=== PATIENT | male | born 1970 | race Caucasian/White ===

== ENCOUNTER 2016-12-05 22:53 | Emergency (ER) | payer OTHER ==
[~2016-12-05] VITALS: Ht 180.3 cm; Wt 110.0 kg
[~2016-12-05 22:53] MED LIST: ENAL10TA88 PO; OMEP40CA PO
[2016-12-05 23:01] VITALS: TEMP 37; Ht 180.3 cm; Wt 110.0 kg
[2016-12-05] MEDS ORDERED: OMEP40CA41 PO (23:57)
[2016-12-05] MEDS ORDERED: ENAL1TAB31 PO (23:57)
--- NOTE | 2016-12-06 00:19 | EMERGENCY ROOM VISIT NOTE ---
History Report prepared by Sarah Beth: Clinton Olivares Under the Supervision of: Dr. Fanny Rossi D.O. First contact with patient: 23:55 Chief Complaint: RECTAL BLEEDING Stated Complaint: RECTAL BLEEDING Nursing Triage Summary: Lump on rectum. Bleeding. History of Present Illness The patient is a 46 year old male who presents to the Emergency Room with complaints of persistent rectal bleeding since yesterday. The patient noticed a mass around his rectum last week which he presumed to be a hemorrhoid. He does not have previous history of hemorrhoids. He started applying hemorrhoid cream which did relieve it. Two days ago another larger mass appeared. Yesterday he noted some blood spotting when he would wipe with toilet paper. Today there was more spotting. Earlier tonight he felt wetness and noted a large amount of blood when he wiped. There was also a large clot. The patient has had intermittent spotting since. He denies constipation. He denies history of rectal abscess. Source of History: patient Onset: yesterday Position: other (rectum) Quality: other (bleeding) Timing: other (persistent) Modifying Factors (Worsening): other (wiping with toilet paper) Review of Systems Patient described bleeding from a hemorrhoid and denies constipation. Past Medical & Surgical Medical Problems: (1) Hernia Family History Diabetes mellitus Heart disease Hypertension Social History Smoking Status: Never Smoker Alcohol Use: none Marital Status: Housing Status: lives with significant other Occupation Status: employed Current/Historical Medications Scheduled Enalapril Maleate (Vasotec), 20 MG PO DAILY Omeprazole (Prilosec), 40 MG PO DAILY Allergies Coded Allergies: No Known Allergies (Unverified , 12/05/16) Physical Exam Vital Signs Date Time Temp Pulse Resp B/P Pulse Ox O2 Delivery O2 Flow Rate FiO2 12/06/16 00:27 69 153/93 97 12/05/16 23:01 37.0 82 18 163/95 98 Room Air Physical Exam Rectal: Patient had a hemorrhoid at the 9 o'clock position. It was the size of a moment. The hemorrhoid was opened with a small amount of clot coming from it. There is no surrounding erythema or edema. There is no evidence for perirectal abscess. Medical Decision & Procedures ED Course 3864: Past medical records reviewed. The patient was evaluated in room C10. A complete history and physical exam was performed. 0015: Discussed the findings and treatment plan with the patient. He verbalized understanding and agreement. The patient is ready for discharge. Medical Decision The patient is a 46 year old male who presents to the ED with rectal bleeding. Differential diagnosis includes hemorrhoid, perirectal abscess, pilonidal cyst. The patient has obvious external hemorrhoid that had been bleeding with a small clot coming from it. The clot was removed. The patient was encouraged to keep this area clean. He should do warm soaks 3-4 times a day. I've encouraged him to follow-up with his PCP if symptoms persist. Impression Primary Impression: Bleeding external hemorrhoids Scribe Attestation The scribe's documentation has been prepared under my direction and personally reviewed by me in its entirety. I confirm that the note above accurately reflects all work, treatment, procedures, and medical decision making performed by me. Departure Information Dispostion Home / Self-Care Referrals Santiago Carvajal M.D. (PCP) Forms HOME CARE DOCUMENTATION FORM, IMPORTANT VISIT INFORMATION, WORK / SCHOOL INSTRUCTIONS Patient Instructions Hemorrhoids Dx, [facility] Additional Instructions Rest. Limit standing or sitting for long periods of time. Do warm soaks every 6-8 hours over next 3-5 days. Follow up with PCP if it continues to bleed. You may continue to apply cream Avoid constipation
[2016-12-06 00:27] VITALS: BP 153/93; PULSE 69; O2SAT 97
== END 2016-12-06 00:28 | disposition home or self-care (01) ==
LOC: C.EDB 22:53 → C.EDC 12-06 00:28
DX: K64.4 Residual hemorrhoidal skin tags (principal); Z83.3 Family history of diabetes mellitus; Z82.49 Family history of ischemic heart disease and other diseases of the circulatory system; Z79.899 Other long term (current) drug therapy